=== PATIENT | male | born 1995 | race American Indian/Alaskan Native ===

== ENCOUNTER 2021-01-08 21:53 | Emergency (ER) | payer OTHER ==
[2021-01-09 01:25] LABS: Basophils # (Auto) 0.1 K/mm3 (0.0-0.1); Basophils % (Auto) 1.3 % (0.0-1.8); Eosinophils # (Auto) 0.4 K/mm3 (0.0-0.4); Eosinophils % (Auto) 6.2 % (0.0-4.3); Hemoglobin 15.8 gm/dl (11.8-15.2); Lymphocytes # (Auto) 3.2 K/mm3 (1.2-5.4); Lymphocytes % (Auto) 46.3 % (13.4-35.0); Mean Corpuscular HGB Conc 34 % (32-34); Mean Corpuscular Volume 91 fl (84-94); Monocytes # (Auto) 0.5 K/mm3 (0.0-0.8); Monocytes % (Auto) 6.8 % (0.0-7.3); Platelet Count 218 K/mm3 (140-440); Red Blood Count 5.19 M/mm3 (3.65-5.03); Red Cell Distribution Width 13.1 % (13.2-15.2)
[2021-01-09 01:35] LABS: BUN/Creatinine Ratio 13; Blood Urea Nitrogen 10 mg/dL (9-20); Calcium 9.3 mg/dL (8.4-10.2); Hemolysis Index 9
[2021-01-09 02:49] LABS: Amphetamine Screen,Urine PRESUMPTIVE NEGATIVE; Benzodiazepines Screen,Urine PRESUMPTIVE NEGATIVE; Cannabinoid Screen,Urine PRESUMPTIVE NEGATIVE; Cocaine Screen,Urine PRESUMPTIVE NEGATIVE; Methadone Screen,Urine PRESUMPTIVE NEGATIVE; Opiate Screen,Urine PRESUMPTIVE NEGATIVE
[2021-01-09 02:55] LABS: Bilirubin,Urine NEG (Negative); Blood,Urine NEG (Negative); Color,Urine Yellow (Yellow); Mucus,Urine 3+ /HPF; Urobilinogen,Urine < 2.0 mg/dL (<2.0)
--- NOTE | 2021-01-09 03:22 | Emergency Department Report ---
ED Psych HPI - General Chief Complaint: Psych Stated Complaint: SUICIDE ATTEMPT Time Seen by Provider: 01/09/21 02:33 Source: patient Mode of arrival: Ambulatory - History of Present Illness Initial Comments: Patient is 25 years old male with history of previous suicidal attempt at age 15. Patient presented to the ER for evaluation after patient tried to commit suicide by hanging. Patient stated that he is feeling depressed. Patient denied any visual hallucination. No auditory hallucination. No homicidal ideation. MD Complaint: suicidal ideation -: Last night Associated Psychiatric Symptoms: suicidal ideation Quality: constant Associated Symptoms: denies other symptoms - Related Data Allergies Allergy/AdvReac Type Severity Reaction Status Date / Time No Known Allergies Allergy Unverified 01/09/21 00:21 ED Review of Systems ROS: Stated complaint: SUICIDE ATTEMPT Other details as noted in HPI Comment: All other systems reviewed and negative Constitutional: denies: chills, fever Respiratory: denies: cough, shortness of breath, SOB with exertion Cardiovascular: denies: chest pain, palpitations Gastrointestinal: denies: abdominal pain, nausea, vomiting Musculoskeletal: denies: back pain Neurological: denies: headache, weakness, numbness, paresthesias, confusion ED Past Medical Hx - Past Medical History Previous Medical History?: Yes Hx Psychiatric Treatment: (Depression, suicide attempt) - Social History Smoking Status: Never Smoker ED Physical Exam - General Limitations: No Limitations General appearance: alert, in no apparent distress - Head Head exam: Present: atraumatic, normocephalic, normal inspection - Eye Eye exam: Present: normal appearance - ENT ENT exam: Present: normal exam, normal orophraynx, mucous membranes moist - Neck Neck exam: Present: normal inspection, full ROM. Absent: tenderness, meningismus - Respiratory Respiratory exam: Present: normal lung sounds bilaterally - Cardiovascular Cardiovascular Exam: Present: regular rate, normal rhythm, normal heart sounds - GI/Abdominal GI/Abdominal exam: Present: soft, normal bowel sounds. Absent: distended, tenderness, guarding, rebound, rigid, organomegaly, mass, bruit, pulsatile mass, hernia - Extremities Exam Extremities exam: Present: normal inspection, full ROM, normal capillary refill. Absent: tenderness - Back Exam Back exam: Present: normal inspection, full ROM. Absent: CVA tenderness (R), CVA tenderness (L) - Neurological Exam Neurological exam: Present: alert, oriented X3, CN II-XII intact - Psychiatric Psychiatric exam: Present: depressed, suicidal ideation. Absent: homicidal ideation - Skin Skin exam: Present: warm, intact, normal color ED Course Vital Signs 01/09/21 01/09/21 01/09/21 00:24 05:20 08:15 Temperature 98.5 F 97.9 F Pulse Rate 62 60 Respiratory 16 20 16 Rate Blood Pressure 129/75 Blood Pressure 108/48 [Left] O2 Sat by Pulse 99 99 99 Oximetry 01/09/21 01/10/21 19:44 01:35 Temperature 98.3 F 98.2 F Pulse Rate 68 72 Respiratory 16 16 Rate Blood Pressure Blood Pressure 110/58 122/62 [Left] O2 Sat by Pulse 97 100 Oximetry ED Medical Decision Making - Lab Data Result diagrams: 01/09/21 00:36 01/09/21 00:36 Critical care attestation.: If time is entered above; I have spent that time in minutes in the direct care of this critically ill patient, excluding procedure time. ED Disposition Clinical Impression: MDD (major depressive disorder) Disposition: DC-01 TO HOME OR SELFCARE Is pt being admited?: No Condition: Stable Instructions: Major Depressive Disorder, Adult Referrals: [facility] [Outside] - 3-5 Days PRIMARY CARE, [Primary Care Provider] - 3-5 Days
--- NOTE | 2021-01-09 08:49 | Consultation ---
History of Present Illness - Reason for Consult Consult date: 01/09/21 Reason for consult: suicidal atttemp - History of Present Psychiatric Illness Per ED Note: Patient is 25 years old male with history of previous suicidal attempt at age 15. Patient presented to the ER for evaluation after patient tried to commit suicide by hanging. Patient stated that he is feeling depressed. Patient denied any visual hallucination. No auditory hallucination. No homicidal ideation. The patient is a 25y/o male who was seen today. He is avoidant and withdrawn. He is uncooperative. He makes poor eye contact. The patient states to me that he doesn't want to live anymore. He says he attempted to hang himself but someone walked in. He then covers his face with linen and refuses to say anything else. PAST PSYCHIATRIC HISTORY Unable to obtain PAST MEDICAL HISTORY: None reported Family Psychiatric History: None reported or documented SOCIAL HISTORY Unable to obtain REVIEW OF SYSTEMS Unable to obtain MENTAL STATUS EXAMINATION Unable to obtain Assessment and Plan (1) Major Depressive Disorder, Severe Treatment Plan Abilify 5mg po daily Prozac 10mg po daily Trazodone 50mg po qhs Risks, benefits and alternatives of medications discussed with the patient, questions answered and consent obtained from patient. PSYCHOTHERAPY: Supportive psychotherapy provided MEDICAL: Per primary team DELIRIUM PRECAUTIONS: Please re-orient patient frequently, keep lights on during the day, and minimize benzodiazepines and opiates as these medications could wo rsen patient's confusion. 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 LEGAL STATUS: 1013 FOLLOW-UP: Will follow Thank you for the consult. Please contact with any questions and/or concerns. Case discussed with Dr. Lake who agrees with current disposition Medications and Allergies Allergies Allergy/AdvReac Type Severity Reaction Status Date / Time No Known Allergies Allergy Unverified 01/09/21 00:21 Mental Status Exam - Vital signs Last Vital Signs Temp 98.5 F 01/09/21 00:24 Pulse 62 01/09/21 00:24 Resp 20 01/09/21 05:20 BP 129/75 01/09/21 00:24 Pulse Ox 99 01/09/21 05:20 Results Result Diagrams: 01/09/21 00:36 01/09/21 00:36 Abnormal lab results 01/09/21 01/09/21 01/09/21 Range/Units 00:36 00:36 00:36 RBC 5.19 H (3.65-5.03) M/mm3 Hgb 15.8 H (11.8-15.2) gm/dl Hct 47.0 H (35.5-45.6) % RDW 13.1 L (13.2-15.2) % Lymph % (Auto) 46.3 H (13.4-35.0) % Eos % (Auto) 6.2 H (0.0-4.3) % Seg Neutrophils % 39.4 L (40.0-70.0) % Glucose 69 L (75-100) mg/dL Salicylates < 0.3 L (2.8-20.0) mg/dL Acetaminophen (10.0-30.0) ug/mL 01/09/21 Range/Units 00:36 RBC (3.65-5.03) M/mm3 Hgb (11.8-15.2) gm/dl Hct (35.5-45.6) % RDW (13.2-15.2) % Lymph % (Auto) (13.4-35.0) % Eos % (Auto) (0.0-4.3) % Seg Neutrophils % (40.0-70.0) % Glucose (75-100) mg/dL Salicylates (2.8-20.0) mg/dL Acetaminophen 5.0 L (10.0-30.0) ug/mL All other labs normal.
--- NOTE | 2021-01-09 10:18 | Emergency Department Report ---
Blank Doc - Documentation Documentation: Awaiting acceptance to inpatient psychiatric unit
[2021-01-09] MEDS: ARIPiprazole 5 MG TAB PO SCH (14:00)
[2021-01-09] MEDS: FLUoxetine 10 MG TAB PO SCH (14:52)
[2021-01-09] MEDS ORDERED: traZODone 50 MG TAB PO SCH (22:00)
[2021-01-10 01:36] VITALS: BP 122/62
--- NOTE | 2021-01-10 10:16 | Progress Note ---
Subjective - Reason for Consult Consult date: 01/10/21 Reason for consult: SI - Chief Complaint Chief complaint: The patient is seen today, he looks down, but tells me he feels better. The patient says he got into an argument with his significant other and thought he wasn't good enough. He says "but I spoke with him." He still verbalizes thoughts of not wanting to live, but states "he's better." He denies hallucinations. ROS: Constitutional: Negative for weight loss ENT: Negative for stridor Respiratory: Negative for cough or hemoptysis All other systems reviewed and are negative MENTAL STATUS EXAMINATION General Appearance and Behavior: Age appropriate, good hygiene, wearing appropriate clothes, good eye contact Cooperation: Participating/engaged, but Guarded Psychomotor Behavior: Psychomotor normal Mood: better Affect and affective range: labile Thought Process: illogical Thought Content: hopelessness, helplessness Speech: Normal rate, volume and rythm Intellectual Functioning: Average Suicidal Ideation: Yes Homicidal Ideation: Denies HI Impulse Control: Impaired Insight and Judgment: Limited insight and judgment Memory: Normal Attention: Normal Orientation: Alert, oriented Assessment and Plan (1) Major Depressive Disorder, Severe Treatment Plan Continue Abilify 5mg po daily Increase Prozac 20mg po daily Continue Trazodone 50mg po qhs Risks, benefits and alternatives of medications discussed with the patient, questions answered and consent obtained from patient. PSYCHOTHERAPY: Supportive psychotherapy provided MEDICAL: Per primary team DELIRIUM PRECAUTIONS: Please re-orient patient frequently, keep lights on during the day, and minimize benzodiazepines and opiates as these medications could worsen patient's confusion. 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 LEGAL STATUS: 1013 FOLLOW-UP: Will follow Thank you for the consult. Please contact with any questions and/or concerns. Case discussed with Dr. Lake who agrees with current disposition Mental Status Exam - Vital signs Last Vital Signs Temp 98.2 F 01/10/21 01:35 Pulse 72 01/10/21 01:35 Resp 16 01/10/21 01:35 BP 122/62 01/10/21 01:35 Pulse Ox 100 01/10/21 01:35
[2021-01-10] MEDS: FLUoxetine 10 MG TAB PO SCH (10:22)
[2021-01-10] MEDS: ARIPiprazole 5 MG TAB PO SCH (10:22)
[2021-01-10] MEDS ORDERED: DEXTROSE 50% IN WATER (25GM) 50 ML VIAL IV PRN (11:38)
[2021-01-10] MEDS ORDERED: LORazepam 2 MG/ML VIAL IM PRN (11:39)
[2021-01-10] MEDS ORDERED: ACETAMINOPHEN 325 MG TAB PO PRN (11:39)
[2021-01-10] MEDS ORDERED: diphenhydrAMINE 25 MG CAP PO PRN (11:39)
[2021-01-10] MEDS ORDERED: ONDANSETRON 4 MG ODT TAB PO PRN (11:39)
--- NOTE | 2021-01-10 11:44 | Event Note ---
Date: 01/10/21 The patient was evaluated in the emergency department for symptoms described in the history of present illness. He/she was evaluated in the context of the global COVID-19 pandemic, which necessitated consideration that the patient might be at risk for infection with the virus that causes COVID-19. Institutional protocols and algorithms that pertain to the evaluation of patients at risk for COVID-19 are in a state of rapid change based on information released by regulatory bodies including the CDC and federal and state organizations. These policies and algorithms were followed during the patient's care in the emergency department. Please note that these policies, procedures and recommendations changed on a rapid basis. Patient awake, alert, in no acute distress. Initial ER documentation psychiatric documentation reviewed and appreciated. We have requested repeat Accu-Chek. However, patient is awake and alert, not clinically encephalopathic. Vital signs, laboratory studies otherwise unremarkable, nursing team endorses no events. 01/10/2021; 02: 21 PM. Repeat Accu-Chek within acceptable limits. [facility] Vital Signs 01/09/21 01/09/21 01/09/21 00:24 05:20 08:15 Temperature 98.5 F 97.9 F Pulse Rate 62 60 Respiratory 16 20 16 Rate Blood Pressure 129/75 Blood Pressure 108/48 [Left] O2 Sat by Pulse 99 99 99 Oximetry 01/09/21 01/10/21 19:44 01:35 Temperature 98.3 F 98.2 F Pulse Rate 68 72 Respiratory 16 16 Rate Blood Pressure Blood Pressure 110/58 122/62 [Left] O2 Sat by Pulse 97 100 Oximetry Lab Results 01/09/21 01/09/21 01/09/21 Range/Units 00:36 00:36 00:36 WBC 6.8 (4.5-11.0) K/mm3 RBC 5.19 H (3.65-5.03) M/mm3 Hgb 15.8 H (11.8-15.2) gm/dl Hct 47.0 H (35.5-45.6) % MCV 91 (84-94) fl MCH 30 (28-32) pg MCHC 34 (32-34) % RDW 13.1 L (13.2-15.2) % Plt Count 218 (140-440) K/mm3 Lymph % (Auto) 46.3 H (13.4-35.0) % [place] % (Auto) 6.8 (0.0-7.3) % Eos % (Auto) 6.2 H (0.0-4.3) % Baso % (Auto) 1.3 (0.0-1.8) % Lymph # (Auto) 3.2 (1.2-5.4) K/mm3 [place] # (Auto) 0.5 (0.0-0.8) K/mm3 Eos # (Auto) 0.4 (0.0-0.4) K/mm3 Baso # (Auto) 0.1 (0.0-0.1) K/mm3 Seg Neutrophils % 39.4 L (40.0-70.0) % Seg Neutrophils # 2.7 (1.8-7.7) K/mm3 Sodium 143 (137-145) mmol/L Potassium 3.9 (3.6-5.0) mmol/L Chloride 105.0 (98-107) mmol/L Carbon Dioxide 29 (22-30) mmol/L Anion Gap 13 mmol/L BUN 10 (9-20) mg/dL Creatinine 0.8 (0.8-1.3) mg/dL Estimated GFR > 60 ml/min BUN/Creatinine Ratio 13 % Glucose 69 L (75-100) mg/dL Calcium 9.3 (8.4-10.2) mg/dL Urine Color (Yellow) Urine Turbidity (Clear) Urine pH (5.0-7.0) Ur Specific [place] (1.003-1.030) Urine Protein (Negative) mg/dL Urine Glucose (UA) (Negative) mg/dL Urine Ketones (Negative) mg/dL Urine Blood (Negative) Urine Nitrite (Negative) Urine Bilirubin (Negative) Urine Urobilinogen (<2.0) mg/dL Ur Leukocyte Esterase (Negative) Urine WBC (Auto) (0.0-6.0) /HPF Urine RBC (Auto) (0.0-6.0) /HPF Urine Mucus /HPF Salicylates < 0.3 L (2.8-20.0) mg/dL Urine Opiates Screen Urine Methadone Screen Acetaminophen (10.0-30.0) ug/mL Ur Barbiturates Screen Ur Phencyclidine Scrn Ur Amphetamines Screen U Benzodiazepines Scrn Urine Cocaine Screen U Marijuana (THC) Screen Drugs of Abuse Note Plasma/Serum Alcohol (0-0.07) % Coronavirus (PCR) (Negative) 01/09/21 01/09/21 01/09/21 Range/Units 00:36 00:36 01:56 WBC (4.5-11.0) K/mm3 RBC (3.65-5.03) M/mm3 Hgb (11.8-15.2) gm/dl Hct (35.5-45.6) % MCV (84-94) fl MCH (28-32) pg MCHC (32-34) % RDW (13.2-15.2) % Plt Count (140-440) K/mm3 Lymph % (Auto) (13.4-35.0) % [place] % (Auto) (0.0-7.3) % Eos % (Auto) (0.0-4.3) % Baso % (Auto) (0.0-1.8) % Lymph # (Auto) (1.2-5.4) K/mm3 [place] # (Auto) (0.0-0.8) K/mm3 Eos # (Auto) (0.0-0.4) K/mm3 Baso # (Auto) (0.0-0.1) K/mm3 Seg Neutrophils % (40.0-70.0) % Seg Neutrophils # (1.8-7.7) K/mm3 Sodium (137-145) mmol/L Potassium (3.6-5.0) mmol/L Chloride (98-107) mmol/L Carbon Dioxide (22-30) mmol/L Anion Gap mmol/L BUN (9-20) mg/dL Creatinine (0.8-1.3) mg/dL Estimated GFR ml/min BUN/Creatinine Ratio % Glucose (75-100) mg/dL Calcium (8.4-10.2) mg/dL Urine Color Yellow (Yellow) Urine Turbidity Clear (Clear) Urine pH 6.0 (5.0-7.0) Ur Specific [place] 1.021 (1.003-1.030) Urine Protein 30 mg/dl (Negative) mg/dL Urine Glucose (UA) Neg (Negative) mg/dL Urine Ketones Neg (Negative) mg/dL Urine Blood Neg (Negative) Urine Nitrite Neg (Negative) Urine Bilirubin Neg (Negative) Urine Urobilinogen < 2.0 (<2.0) mg/dL Ur Leukocyte Esterase Neg (Negative) Urine WBC (Auto) 1.0 (0.0-6.0) /HPF Urine RBC (Auto) 2.0 (0.0-6.0) /HPF Urine Mucus 3+ /HPF Salicylates (2.8-20.0) mg/dL Urine Opiates Screen Urine Methadone Screen Acetaminophen 5.0 L (10.0-30.0) ug/mL Ur Barbiturates Screen Ur Phencyclidine Scrn Ur Amphetamines Screen U Benzodiazepines Scrn Urine Cocaine Screen U Marijuana (THC) Screen Drugs of Abuse Note Plasma/Serum Alcohol < 0.01 (0-0.07) % Coronavirus (PCR) (Negative) 01/09/21 01/09/21 Range/Units 01:56 Unknown WBC (4.5-11.0) K/mm3 RBC (3.65-5.03) M/mm3 Hgb (11.8-15.2) gm/dl Hct (35.5-45.6) % MCV (84-94) fl MCH (28-32) pg MCHC (32-34) % RDW (13.2-15.2) % Plt Count (140-440) K/mm3 Lymph % (Auto) (13.4-35.0) % [place] % (Auto) (0.0-7.3) % Eos % (Auto) (0.0-4.3) % Baso % (Auto) (0.0-1.8) % Lymph # (Auto) (1.2-5.4) K/mm3 [place] # (Auto) (0.0-0.8) K/mm3 Eos # (Auto) (0.0-0.4) K/mm3 Baso # (Auto) (0.0-0.1) K/mm3 Seg Neutrophils % (40.0-70.0) % Seg Neutrophils # (1.8-7.7) K/mm3 Sodium (137-145) mmol/L Potassium (3.6-5.0) mmol/L Chloride (98-107) mmol/L Carbon Dioxide (22-30) mmol/L Anion Gap mmol/L BUN (9-20) mg/dL Creatinine (0.8-1.3) mg/dL Estimated GFR ml/min BUN/Creatinine Ratio % Glucose (75-100) mg/dL Calcium (8.4-10.2) mg/dL Urine Color (Yellow) Urine Turbidity (Clear) Urine pH (5.0-7.0) Ur Specific [place] (1.003-1.030) Urine Protein (Negative) mg/dL Urine Glucose (UA) (Negative) mg/dL Urine Ketones (Negative) mg/dL Urine Blood (Negative) Urine Nitrite (Negative) Urine Bilirubin (Negative) Urine Urobilinogen (<2.0) mg/dL Ur Leukocyte Esterase (Negative) Urine WBC (Auto) (0.0-6.0) /HPF Urine RBC (Auto) (0.0-6.0) /HPF Urine Mucus /HPF Salicylates (2.8-20.0) mg/dL Urine Opiates Screen Presumptive negative Urine Methadone Screen Presumptive negative Acetaminophen (10.0-30.0) ug/mL Ur Barbiturates Screen Presumptive negative Ur Phencyclidine Scrn Presumptive negative Ur Amphetamines Screen Presumptive negative U Benzodiazepines Scrn Presumptive negative Urine Cocaine Screen Presumptive negative U Marijuana (THC) Screen Presumptive negative Drugs of Abuse Note Disclamer Plasma/Serum Alcohol (0-0.07) % Coronavirus (PCR) Negative (Negative)
[2021-01-11] MEDS ORDERED: FLUoxetine 20 MG CAP PO SCH (11:30)
== END 2021-01-10 17:20 | disposition home or self-care (01) ==
LOC: ED 21:53
DX: T14.91XA Suicide attempt, initial encounter (principal); F32.9 Major depressive disorder, single episode, unspecified; Z20.822 Contact with and (suspected) exposure to COVID-19; X83.8XXA Intentional self-harm by other specified means, initial encounter; Y93.89 Activity, other specified; Y92.89 Other specified places as the place of occurrence of the external cause; Y99.8 Other external cause status
CPT/HCPCS: 36415; 80048; 80307; 81001; 82962; 85025; 99285; U0003; 80320; G0480